=== PATIENT | male | born 1940 | race Caucasian/White ===

== ENCOUNTER → 2024-07-28 16:18 | Day surgery (SDC) | payer MEDICARE, OTHER, SELFPAY ==
[2024-07-28 12:06] VITALS: BP 157/86
[2024-07-28 12:30] LABS: % Basophils 0.6 % (0-2); % Eosinophils 4.5 % (0-6); % Immature Granulocytes 0.4 % (0-0.5); % Lymphocytes 9.5 % (20.5-51.1); % Monocytes 7.2 % (1.7-9.3); % Neutrophils 77.8 % (42.2-75.2); Absolute Basophils 0.1 10^3/uL (0-0.2); Absolute Eosinophils 0.5 10^3/uL (0-0.7); Absolute Immature Granulocytes 0.1 10^3/uL (0-0.05); Absolute Lymphocytes 1.1 10^3/uL (1.2-3.4); Absolute Monocytes 0.8 10^3/uL (0.1-0.6); Absolute Neutrophils 8.9 10^3/uL (1.4-6.5); Hematocrit 41.9 % (39.0-52.0); Hemoglobin 13.7 g/dL (13.0-18.0); Mean Corp Hgb Conc. 32.7 g/dL (33.0-37.0); Mean Corpuscular Hgb 27.8 pg (27.0-31.0); Mean Platelet Volume 9.8 fL (7.4-10.4); Nucleated Red Blood Cells % 0 % (-); Platelet Count 208 10^3/uL (130-400); Red Blood Cell Count 4.93 10^6/uL (4.70-6.10); Red Cell Dist. Width 14.6 % (11.5-14.5); White Blood Cell Count 11.5 10^3/uL (4.8-10.8)
[2024-07-28 12:43] LABS: INR 0.97; PT 13.4 Sec (11.4-14.6)
[2024-07-28 12:44] LABS: ALT (SGPT) 22 U/L (0-50); AST (SGOT) 25 U/L (17-59); Albumin 4.3 g/dl (3.5-5.0); Alkaline Phosphatase 197 U/L (38-126); Blood Urea Nitrogen 21 mg/dl (9-20); Calcium 9.4 mg/dl (8.4-10.2); Carbon Dioxide 31 mmol/L (22-30); Chloride 100 mmol/L (98-107); Glucose 97 mg/dl (70-99); Potassium 4.3 mmol/L (3.5-5.1); Sodium 139 mmol/L (135-145); Total Bilirubin 0.9 mg/dl (0.2-1.3); eGFR 53.84
--- NOTE | 2024-07-28 13:12 | ED.GENMED ---
ED Provider Triage
-
Patient seen by provider in Triage?: Seen in Triage
84 y/o M
h/o very many esophageal dilation surgeries at [facility]; 20+
for some reason he came here today
took his am pills with liquids fine
then ate oatmeal fine; then ate a muffin and felt it get stuck
ever since, having regurg of liquids and solids; speaking clearly, tolerating secretions
A medical screening examination has been initiated by a qualified medical provider. Based on the assessment performed at this time, it has been determined that an emergent medical condition may exist and the patient has been informed that further
medical evaluation and possible additional diagnostic testing may be needed.
HPI: This is a medical evaluation conducted in person to initiate diagnostic evaluation and provide initial therapeutics. Please see further documentation by the treating clinician.
GENERAL: Alert , in no apparent distress
ENT: No visible abnormalities
LUNGS: No acute respiratory distress
NEUROLOGICAL: Alert and oriented
SKIN: Skin intact. No visible changes.
MUSCULOSKELETAL: Moving extremities normally
PSYCH: Normal and appropriate interaction.
I did notify Dr. davis through [place] text regarding this patient's being in our waiting room, he will likely need to GI suite. We could not do glucagon out here at this time.
History of Present Illness
General
Chief Complaint: Swallowing Problem
Source: patient
Exam Limitations: none
Time Seen by Provider: 07/28/24 13:53
Nursing documentation reviewed up to this point in time: agreed with
History of Present Illness
History of Present Illness:
84 y/o M
History of cirrhosis, esophageal strictures, coronary artery disease and multiple other medical problems presents to [facility] for the first time for feeling like his muffin got stuck when he ate at for breakfast this morning.
h/o very many esophageal dilation surgeries at [facility]; 20+ times by GI there. His last 1 was 6 weeks ago
took his am pills with liquids fine
then ate oatmeal fine; then ate a muffin and felt it get stuck and ever since then he has not been able to pass liquids or solids. He did feel that the discomfort where the muffin was is better but he still cannot tolerate
Past History
Past History
ED Past Medical History: HTN, [place] and Other (Esophageal stricture)
ED Past Surgical History: Cardiac (Pacemaker, 2 stents), Orthopedic (Left knee replacement) and Other (Femoral bypass, AAA repair, multiple endoscopies for esophageal dilatation)
Patient has exhibited threatening behavior?: No
PSI?: No
Social History
Tobacco: Non-smoker
Alcohol: None
Drug: None
Personal:
Living: with family
Phy Exam
Physical Exam
Physical Exam:
GENERAL: Alert , in no apparent distress
EYE: pupils equal and reactive
NECK: Supple, tolerating secretions well
ENT: o/p clr, mmm.
CARDIAC: Regular rate and rhythm .
LUNGS: Clear breath sounds bilaterally, no acute respiratory distress, no wheezes/rales/rhonchi
ABDOMEN: Soft, without focal tenderness, no r/g, no cvat, normal bowel sounds
NEUROLOGICAL: Alert and oriented, no focal neuro deficits
SKIN: Warm and dry, skin intact.
MUSCULOSKELETAL: No edema, well perfused. neg alcon's sign
PSYCH: Normal and appropriate interaction.
Course
Orders/Labs/Results
Orders:
Orders
07/28/24 12:17
Complete Blood Count/With Diff Urgent
Comprehensive Metabolic Panel Urgent
PT/INR [Prothrombin Time] Urgent
07/28/24 14:30
Glucagon [GlucaGen] 1 mg IV NOW STA
07/28/24 16:02
Glycopyrrolate [Robinul] 0.2 mg .ROUTE .STK-MED ONE
Lidocaine 2% Mpf [Xylocaine Mpf 2%] 100 mg .ROUTE .STK-MED ONE
Rocuronium [place] [Rocuronium] 50 mg .ROUTE .STK-MED ONE
Sugammadex Sodium [Bridion] 200 mg .ROUTE .STK-MED ONE
07/28/24 16:03
Fentanyl Citrate/Pf [Sublimaze] 100 mcg .ROUTE .STK-MED ONE
Propofol [Diprivan] 40 ml .ROUTE .STK-MED
07/28/24 16:46
Activity As Directed
Activity Level: Bedrest
Comment: bedrest until awake & alert then resume previous activity level
Vital Signs As Directed
Frequency: Post-operative guidelines
Abnormal Lab Results
07/28/24
12:17
WBC 11.5 H 10^3/uL
(4.8-10.8)
MCHC 32.7 L g/dL
(33.0-37.0)
RDW 14.6 H %
(11.5-14.5)
Abs Immat Gran (auto) 0.1 H 10^3/uL
(0-0.05)
Absolute Neuts (auto) 8.9 H 10^3/uL
(1.4-6.5)
Absolute Lymphs (auto) 1.1 L 10^3/uL
(1.2-3.4)
Absolute Monos (auto) 0.8 H 10^3/uL
(0.1-0.6)
Neutrophils % 77.8 H %
(42.2-75.2)
Lymphocytes % 9.5 L %
(20.5-51.1)
Carbon Dioxide 31 H mmol/L
(22-30)
BUN 21 H mg/dl
(9-20)
Alkaline Phosphatase 197 H U/L
(38-126)
07/28/24 12:17
07/28/24 12:17
Vital Signs
Initial and Last Documented VS:
Initial Vital Signs
Temp Pulse Resp BP Pulse Ox
36.8 C 74 16 157/86 98
07/28/24 12:06 07/28/24 12:06 07/28/24 12:06 07/28/24 12:06 07/28/24 12:06
Last Documented Vital Signs
Temp Pulse Resp BP Pulse Ox
36.8 C 70 13 151/99 97
07/28/24 12:06 07/28/24 17:14 07/28/24 17:14 07/28/24 17:15 07/28/24 17:16
MDM/Problems Addressed
Differential Diagnosis Includes:
Dysphagia, food bolus, esophageal stricture
MDM/Problems Addressed:
84-year-old male with well-known documented history of esophageal strictures for years, requiring dilations, ate a muffin today and felt like it did not pass all the way but he was able to bring it up but ever since he feels a discomfort and it
regurgitates liquids or solids with swallowing. He knows he needs a dilation. He came here because he was closer to this hospital he is never been here before. On exam the patient is comfortable and tolerating secretions. He had a consultation
by GI who recommended IV glucagon which I did order. Patient ended up going to the GI suite
*Critical Care Note
Total Time (30-74mins, 75-104mins- exclusive of procedures): Not Applicable
ED Attending Note
-
Portions of this chart may have been created with voice recognition software.� Occasional wrong word or��sound alike� substitutions may have occurred due to the inherent limitations of voice recognition software.
Discharge Plan
Departure
Patient Disposition: GI LAB
Date of Disposition: 07/28/24
Time of Disposition: 17:31
Presentation/result/management discussed w/ accepting /: susan
Patient with high blood pressure during this ER visit?: No
Condition: Fair
Covid-19: Not Applicable
Discharge Problem:
Esophageal stricture
Referrals:
Daryl Costello DO [Family Provider] -
Interventions
Interventions:
*Risk Screen - Suicide Last Done: 07/28/24 12:06
*General Assessment Last Done: 07/28/24 15:12
*Neglect/Abuse Screening Last Done: 07/28/24 12:06
*ED COVID-19 Vaccine History Last Done: 07/28/24 15:12
*Nursing Disposition Last Done: 07/28/24 16:17
ED-EENT Assessment Last Done: 07/28/24 15:07
DA-Wldbes-Bktvituvgw Assessment Last Done: 07/28/24 15:07
ED- Pulmonary Assessment Last Done: 07/28/24 15:07
ED- Neurological Assessment Last Done: 07/28/24 15:07
ED Swallowing Screen Last Done: 07/28/24 15:07
Discharge Date and Time
Print Language: PAKISTANI
--- NOTE | 2024-07-28 14:42 | CON.GI ---
Addendum entered and electronically signed by Lola Modi MD 07/28/24 17:45:
I saw and examined the patient.
The CERTIFIED [employer]ACILITY OPERATOR's note was reviewed and I agree with the note.
Comment: This is a very pleasant 84-year-old male with past medical history as listed below who also has history of GERD, reflux esophagitis and esophageal stricture requiring multiple dilatations in the past with Dr. Muhammad for the past couple years
> 10 years and most recently had an endoscopy on 06/22/2024 which showed small hiatal hernia, esophagitis in the midesophagus and 2 esophageal ulcers present. patient has been on pantoprazole twice daily prior to admission. He also takes Plavix
denies any NSAID use. He was also started on Carafate recently no dilatation was performed because no obvious stricture was noted at that time. Today he took his medications and after he had juice, cream of wheat and a blueberry muffin he felt
that a piece of the muffin got stuck and he was unable to pass it and unable to swallow secretions and presented to the emergency room. He says that when these episodes happened in the past he would drink some warm tea and it usually would pass he
has never had a food bolus impaction in the past despite having a stricture
Assessment and plan Food bolus impaction most likely related to known esophageal stricture although on recent endoscopy from June with Dr. Muhammad there was no stricture reported. Will schedule him for an endoscopy with removal of the food bolus
and he will follow-up with Dr. Muhammad as outpatient. if he does have evidence of stricture on EGD today will require further dilatations after hold of Plavix for 5 to 7 days last dose of Plavix was today. recent endoscopy with significant esophagitis
continue pantoprazole twice daily and Carafate.
Original Note:
Consultation
-
Date/Time Consultation Requested: 07/28/241414
Date/Time Consultation Performed: 07/28/241424
Requesting Provider: AVE Candelaria
Performing Provider: Dr. Modi/[facility] Ha
Reason for Consultation: food bolus, dysphagia
Medical History
Chief Complaint / HPI
Chief Complaint: dysphagia, unable to tolerate secretions
History of Present Illness:
84-year-old male with past medical history of CAD, CHF, A-fib, cirrhosis per report, abdominal aortic aneurysm repair, hypertension, hyperlipidemia, pacemaker, orthostatic hypotension, prior alcohol use, angina, renal artery stenosis, vertigo, GERD,
esophagitis, dysphagia with history of esophageal stenosis in the past with recent endoscopy performed with Dr. Muhammad on 06/22/2024 which showed small hiatal hernia, grade 3/4 esophagitis in the mid esophagus with 2 esophageal ulcers present, patient
was actively refluxing during procedure. No stricture present. Endoscopy performed to duodenum. Patient was discharged on Carafate 3 times a day for 1 week. To continue on pantoprazole twice daily indefinitely. There was no stretching performed
at that time. Patient states that he took his medications this morning, had a glass of juice, ate cream of wheat and then had a blueberry muffin. He felt his blueberry muffin gets stuck. He states that anything after that promptly regurgitated
back up. He states that usually when this happens he has a cup of warm tea and this usually passes however this did not promptly regurgitated back up. He proceeded to the emergency room via ambulance. Since that time saliva has been building up
and he needed to go to the restroom and bring it up. He is on Plavix which she did take this morning. He is not on any other NSAIDs or anticoagulation. Patient was seen in the presence of his son Alex ([phone]) confirms his past medical
history. WBC 11.5, hemoglobin 13.7, crit 41.9, platelets 208, PT 13.4, INR 0.97, sodium 139, potassium 4.3, chloride 100, CO2 31, BUN 21, creatinine 1.39, glucose 97, total bilirubin 0.9, AST 25, ALT 22, alk phos 197, albumin 4.3
Past Medical History
Past Medical History: Other (CAD, CHF, paroxysmal A-fib, cirrhosis per report, hypertension, hyperlipidemia, orthostatic hypotension, prior alcohol overuse, angina, renal artery stenosis, vertigo, GERD, esophagitis, dysphagia with history of
esophageal stenosis,)
Past Surgical History: Other (Left knee replacement, cardiac stents, pacemaker, AAA repair, 'over 20 endoscopies')
Social History
Tobacco: Former Smoker
Alcohol: Occasional
Drug: None
Living: Assisted Living
Family History
Family History: Other (No family history of gastrointestinal malignancy or IBD)
Allergies / Home Medications
Allergy/AdvReac Type Severity Reaction Status Date / Time
No Known Allergies Allergy Verified 07/28/24 12:09
Review of Systems
-
All other systems: A 12 pt ROS was Negative except as stated above in HPI
Vital Signs
Temp Pulse Resp BP Pulse Ox
98.3 F 74 16 157/86 98
07/28/24 12:06 07/28/24 12:06 07/28/24 12:06 07/28/24 12:06 07/28/24 12:06
Physical Exam
Exam
General: No Apparent Distress
HEENT: Anicteric
Respiratory: Clear (Anterior)
Cardiac: Regular Rhythm
GI: Soft, Non Tender, Non Distended and Normal Bowel Sounds
Skin: Warm and Dry
Neuro: AO x 3
Psych: Calm
Results
WBC 11.5 10^3/uL (4.8-10.8) H 07/28/24 12:17
Hgb 13.7 g/dL (13.0-18.0) 07/28/24 12:17
Hct 41.9 % (39.0-52.0) 07/28/24 12:17
MCV 85.0 fL (80.0-94.0) 07/28/24 12:17
Plt Count 208 10^3/uL (130-400) 07/28/24 12:17
Absolute Neuts (auto) 8.9 10^3/uL (1.4-6.5) H 07/28/24 12:17
PT 13.4 Sec (11.4-14.6) 07/28/24 12:17
INR 0.97 07/28/24 12:17
Sodium 139 mmol/L (135-145) 07/28/24 12:17
Potassium 4.3 mmol/L (3.5-5.1) 07/28/24 12:17
Chloride 100 mmol/L (98-107) 07/28/24 12:17
Carbon Dioxide 31 mmol/L (22-30) H 07/28/24 12:17
BUN 21 mg/dl (9-20) H 07/28/24 12:17
Creatinine 1.3 mg/dL (0.7-1.3) 07/28/24 12:17
Calcium 9.4 mg/dl (8.4-10.2) 07/28/24 12:17
Total Bilirubin 0.9 mg/dl (0.2-1.3) 07/28/24 12:17
AST 25 U/L (17-59) 07/28/24 12:17
ALT 22 U/L (0-50) 07/28/24 12:17
Alkaline Phosphatase 197 U/L (38-126) H 07/28/24 12:17
Diagnostic Image Results:
None
Prior GI Procedures:
EGD: 06/22/2024 Dr. Huggins: Grade 3/4 esophagitis. No stricture. Wide open esophagus except for esophagitis. Small hiatal hernia. 2 esophageal ulcers present. Refluxing during procedure. Pathology negative for H. pylori. Negative Perez's
Colonoscopy:
Assessment / Plan
-
84-year-old male with past medical history of CAD, CHF, A-fib, cirrhosis per report, abdominal aortic aneurysm repair, hypertension, hyperlipidemia, pacemaker, orthostatic hypotension, prior alcohol use, angina, renal artery stenosis, vertigo, GERD,
esophagitis, dysphagia with history of esophageal stenosis in the past with recent endoscopy performed with Dr. Muhammad on 06/22/2024 which showed small hiatal hernia, grade 3/4 esophagitis in the mid esophagus with 2 esophageal ulcers present, patient
was actively refluxing during procedure. No stricture present. Endoscopy performed to duodenum. Patient was discharged on Carafate 3 times a day for 1 week. To continue on pantoprazole twice daily indefinitely. There was no stretching performed
at that time. Patient states that he took his medications this morning, had a glass of juice, ate cream of wheat and then had a blueberry muffin. The patient has not been able to pass this. Regurgitating liquids and secretions since that time.
Current medications: Tylenol, atorvastatin, betamethasone, bumetanide, Plavix (taken this a.m.), famotidine, ferrous sulfate, folic acid, Gemtesa, losartan, metoprolol, nitro (as needed), pantoprazole 40 mg twice daily, potassium
Labs: WBC 11.5, hemoglobin 13.7, Hct 41.9, platelets 208, PT 13.4, INR 0.97, sodium 139, potassium 4.3, chloride 100, CO2 31, BUN 21, creatinine 1.39, glucose 97, total bilirubin 0.9, AST 25, ALT 22, alk phos 197, albumin 4.3
No imaging
Allergies Keflex/cephalexin
Son Alex ([phone])
Impression:
Dysphagia/food impaction
History of esophagitis
History of prior esophageal stricture, not recently seen on prior endoscopy 06/22/[address] Huggins EGD
On Plavix, last dose this morning
Possible history of cirrhosis, although no varices seen on EGD per report. Preserved platelets, INR
Plan:
-ER to secure IV line
-ER to try to give glucagon to help pass food bolus
-Plan on EGD today
-Discussed with patient and son patient will require intubation for procedure
-Patient is to be discharged later today son will be able to provide transportation
-Further recommendations to be forthcoming after EGD
-
-
Thank you for consultation and allowing me to participate in the patient's care. Please call the [facility] GI physician during the after hours with any questions or concerns.
[2024-07-28] MEDS: GlucaGen 1 MG IV (15:09)
[2024-07-28 16:49] VITALS: BP 117/67
[2024-07-28 17:00] VITALS: BP 157/78
[2024-07-28 17:15] VITALS: BP 151/99
== END ==
LOC: EMR 11:36 → SDS 16:18
PROVIDERS: Emergency Medicine; ATTENDING PHYSICIAN Internal Medicine Gastroenterology; EMERGENCY PHYSICIAN Student in an Organized Health Care Education/Training Program; FAMILY PHYSICIAN Family Medicine
DX: T18.128A Food in esophagus causing other injury, initial encounter (principal); W44.F3XA Food entering into or through a natural orifice, initial encounter; K20.90 Esophagitis, unspecified without bleeding; K22.2 Esophageal obstruction; R13.19 Other dysphagia
CPT/HCPCS: 43235; 80053; 85025; 85610; 96374; 99285; J1610

== ENCOUNTER 2024-08-07 12:59 | Inpatient (IN) | payer MEDICARE, OTHER, SELFPAY ==
[2024-08-07 10:38] VITALS: BP 171/88
[2024-08-07] MEDS: NSS 500 IV (11:42)
[2024-08-07 11:43] VITALS: BMI 34.9
[2024-08-07 11:50] LABS: % Basophils 0.4 % (0-2); % Eosinophils 6.2 % (0-6); % Immature Granulocytes 0.4 % (0-0.5); % Lymphocytes 10.7 % (20.5-51.1); % Monocytes 7.9 % (1.7-9.3); % Neutrophils 74.4 % (42.2-75.2); Absolute Eosinophils 0.6 10^3/uL (0-0.7); Absolute Monocytes 0.7 10^3/uL (0.1-0.6); Absolute Neutrophils 6.9 10^3/uL (1.4-6.5); Hematocrit 41.7 % (39.0-52.0); Hemoglobin 13.6 g/dL (13.0-18.0); Mean Corp Hgb Conc. 32.6 g/dL (33.0-37.0); Mean Corpuscular Hgb 27.6 pg (27.0-31.0); Mean Corpuscular Volume 84.8 fL (80.0-94.0); Mean Platelet Volume 9.6 fL (7.4-10.4); Nucleated Red Blood Cells % 0 % (-); Platelet Count 224 10^3/uL (130-400); Red Blood Cell Count 4.92 10^6/uL (4.70-6.10); White Blood Cell Count 9.3 10^3/uL (4.8-10.8)
[2024-08-07 12:04] LABS: ALT (SGPT) 16 U/L (0-50); AST (SGOT) 23 U/L (17-59); Albumin 3.8 g/dl (3.5-5.0); Alkaline Phosphatase 172 U/L (38-126); Blood Urea Nitrogen 18 mg/dl (9-20); Calcium 9.6 mg/dl (8.4-10.2); Carbon Dioxide 34 mmol/L (22-30); Chloride 99 mmol/L (98-107); Estimated Creatinine Clearance 61 ml/min; Glucose 111 mg/dl (70-99); Potassium 4.5 mmol/L (3.5-5.1); Sodium 137 mmol/L (135-145); Total Bilirubin 0.7 mg/dl (0.2-1.3); Total Protein 6.7 g/dl (6.3-8.2); eGFR > 60.00
[2024-08-07] MEDS: PROTONIX IV 40 MG IV ×2 (12:14→21:42)
--- NOTE | 2024-08-07 12:16 | ED.GENMED ---
History of Present Illness
General
Chief Complaint: Esophageal Problem
Time Seen by Provider: 08/07/24 11:15
History of Present Illness
History of Present Illness:
84-year-old male with history of recurrent esophageal strictures and esophagitis presents to the emergency department for evaluation of inability to pass any p.o. fluids or solids for the past day. Was most recently scoped in late July and was
planning to obtain an outpatient EGD for repeat dilatation before the symptoms began. He attempted to take his pills this morning with no success. He has resumed his Plavix up until this morning
Past History
Past History
ED Past Medical History: HTN, [place] and Other (Esophageal stricture)
ED Past Surgical History: Cardiac (Pacemaker, 2 stents), Orthopedic (Left knee replacement) and Other (Femoral bypass, AAA repair, multiple endoscopies for esophageal dilatation)
Patient has exhibited threatening behavior?: No
PSI?: No
Social History
Tobacco: Non-smoker
Alcohol: None
Drug: None
Personal:
Living: with family
Review of Systems
Review of Systems
Allergies reviewed?: Yes
All Other Systems: ROS reviewed and negative except as documented in HPI and ROS
Phy Exam
Physical Exam
Physical Exam:
GEN: Well appearing, NAD, WDWN
HEENT: Oral mucosa moist, no scleral icterus
Cardiac: Regular rate
Lung: No respiratory distress, no tachypnea
MSK: No gross deformity or injuries
Skin: Good color, no pallor or jaundice, no rashes
Neuro: AO x3, moves all extremities freely
Psych: Calm, cooperative
Course
Orders/Labs/Results
Orders:
Orders
08/07/24 11:37
0.9% Sodium Chloride 500 ml [Nss] 500 ml IV BOLUS
08/07/24 11:43
Complete Blood Count/With Diff Urgent
Comprehensive Metabolic Panel Urgent
08/07/24 12:03
Pantoprazole [Protonix IV] 40 mg IV NOW STA
08/07/24 12:40
Admit/Transfer Patient As Directed
Co-Sign Provider:
Level of Care: Inpatient admission
Assign to:: Medical/Surgical
Physician / Group: damon
Diagnosis: esophageal stricture
Reason for Hospitalization: esophageal stricture
Expected length of stay greater than two midnights?: Yes
ELOS- Estimated Length of Stay in days: 2
I certify the patient meets the requirements for IP care: Yes
Code Status As Directed
Resuscitation Status: Do not resuscitate
Reached after discussion with pt or family/Healthcare POA: Yes
PRN Pain Medication Management As Directed
May give lesser potent ordered pain med per pt: Yes
preference::
Protocol:: Medication orders for pain may be administered in a
manner that supports deferring to patient preference
when the pt is:
- Requesting an ordered lesser potent pain medication.
Least to most potent pain medications are defined
as: acetaminophen < NSAID < tramadol < opioids
(morphine, oxycodone, hydromorphone).
- Requesting a lesser dose of the same medication IF
ORDERED.
- Requesting a less intrusive route of administration
if both routes are prescribed by the provider (PO <
IV).
08/07/24 12:41
DNR Bracelet Application ONCE
08/07/24 14:12
Ondansetron Injectable [Zofran] 4 mg IV Q6HPRN PRN
08/07/24 14:12
GASTROINTESTINAL CONSULT Routine
Consulting Provider: Rosaura Lawson
Was physician already notified: Yes
Activity As Directed
Activity Level: As Tolerated
Pneumatic Compression Sleeves As Directed
Type: Knee high
Vital Signs As Directed
Frequency: Per unit guidelines
DX Deep Vein Thrombosis Video Routine
08/07/24 Dinner
NPO
Allow oral meds: Yes
Allow clear liquids: No
08/07/24 20:00
Pantoprazole [Protonix IV] 40 mg IV BID
08/08/24 06:00
Complete Blood Count/With Diff IN AM
Comprehensive Metabolic Panel IN AM
Abnormal Lab Results
08/07/24
11:43
MCHC 32.6 L g/dL
(33.0-37.0)
Absolute Neuts (auto) 6.9 H 10^3/uL
(1.4-6.5)
Absolute Lymphs (auto) 1.0 L 10^3/uL
(1.2-3.4)
Absolute Monos (auto) 0.7 H 10^3/uL
(0.1-0.6)
Lymphocytes % 10.7 L %
(20.5-51.1)
Eosinophils % 6.2 H %
(0-6)
Carbon Dioxide 34 H mmol/L
(22-30)
Glucose 111 H mg/dl
(70-99)
Alkaline Phosphatase 172 H U/L
(38-126)
08/07/24 11:43
08/07/24 11:43
Vital Signs
Initial and Last Documented VS:
Initial Vital Signs
Temp Pulse Resp BP Pulse Ox
98.2 F 70 18 171/88 96
08/07/24 10:38 08/07/24 10:38 08/07/24 10:38 08/07/24 10:38 08/07/24 10:38
Last Documented Vital Signs
Temp Pulse Resp BP Pulse Ox
97.8 F 72 18 179/85 96
08/07/24 14:20 08/07/24 14:20 08/07/24 14:20 08/07/24 14:20 08/07/24 14:20
MDM/Problems Addressed
MDM/Problems Addressed:
Case discussed with GI, patient will require admission for IV PPIs and plan for eventual endoscopy but emergent endoscopy is not indicated particular given risk of perforation and current use of antiplatelet agent
*Critical Care Note
Total Time (30-74mins, 75-104mins- exclusive of procedures): Not Applicable
ED Attending Note
-
Portions of this chart may have been created with voice recognition software.� Occasional wrong word or��sound alike� substitutions may have occurred due to the inherent limitations of voice recognition software.
Discharge Plan
Departure
Patient Disposition: Admit
Date of Disposition: 08/07/24
Time of Disposition: 12:18
Admit to: Med/Surg
Presentation/result/management discussed w/ accepting MD/DO: Hospitalist
Discharge Problem:
Esophagitis
Interventions
Interventions:
*Risk Screen - Suicide Last Done: 08/07/24 10:38
*General Assessment Last Done: 08/07/24 10:38
*Nursing Disposition Last Done: 08/07/24 13:49
NP-Umcldk-Wzwdppropl Assessment Last Done: 08/07/24 11:54
ED-EENT Assessment Last Done: 08/07/24 11:54
Discharge Date and Time
Discharge Date/Time: 08/07/24 13:49
--- NOTE | 2024-08-07 12:49 | HPS.HSE ---
Family Physician
-
Family Physician: Daryl Costello
Chief Complaint
-
inability to tolerate PO
History of Present Illness
84-year-old male past medical history of GERD, reflux esophagitis, esophageal ulcers, hiatal hernia, esophageal stricture status post multiple dilatations in the past, hypertension, CAD, CHF, pacemaker, thoracic aortic aneurysm, abdominal aortic
aneurysm status post repair, PAD status post femoral bypass on Plavix, presenting for inability to pass any p.o. fluids or solids for the past day. Unable to take pills today. He denies any chest pain or abdominal pain. Denies vomiting. Denies
diarrhea or constipation.
Patient was recently in the hospital on 07/28 of this year for food bolus impaction likely related to known esophageal stricture. He underwent EGD which showed esophagitis without bleeding, esophageal diverticulum. Repeat endoscopy is recommended 1
month to check for healing and dilatation.
Patient previously had endoscopy on 06/22 which showed small hiatal hernia, esophagitis in the midesophagus and 2 esophageal ulcers.
He is a former smoker. He drinks alcohol occasionally.
Medical History
Past Medical History
Past Medical History: Reports Other (GERD, reflux esophagitis, esophageal ulcers, hiatal hernia, esophageal stricture status post multiple dilatations in the past, hypertension, CAD, CHF, pacemaker, thoracic aortic aneurysm, abdominal aortic
aneurysm status post repair, PAD status post femoral bypass on Plavix,)
Past Surgical History: Reports Other ((Left knee replacement, cardiac stents, pacemaker, AAA repair, 'over 20 endoscopies')
Social History
Tobacco: Former Smoker
Alcohol: Occasional
Drug: None
Family History
Family History: Not pertinent
Allergies / Home Medications
Allergies reflects when Allergies were last updated in [facility].
Home Medications with original date entered in [facility]
Allergy/Medication List:
Allergies
Allergy/AdvReac Type Severity Reaction Status Date / Time
No Known Allergies Allergy Verified 08/07/24 10:39
Review of Systems
-
History Source: Patient
A 12 point ROS was completed and negative except as noted: Yes
Constitutional: Reports No Symptoms
EENT: Reports No Symptoms
Respiratory: Reports No Symptoms
Cardiac: Reports No Symptoms
Abdomen/GI: Reports No Symptoms
: Reports No Symptoms
Musculoskeletal: Reports No Symptoms
Skin: Reports No Symptoms
Neurological: Reports No Symptoms
Endocrine: Reports No Symptoms
Hematologic/Lymphatic: Reports No Symptoms
Psych: Reports No Symptoms
Physical Exam
Vital Signs
Vital Signs
Temp Pulse Resp BP Pulse Ox
98.2 F 70 18 171/88 96
08/07/24 10:38 08/07/24 10:38 08/07/24 10:38 08/07/24 10:38 08/07/24 10:38
Physical Exam
General: Well Developed, Well Nourished and No Apparent Distress
HEENT: NormoCephalic, Moist mucous membranes and Atraumatic
Respiratory: Clear
Cardiac: S1/S2 and Regular Rhythm; No Murmur or Rub
GI: Soft, Non Tender, Non Distended and Normal Bowel Sounds; No Organomegaly
Rectal: Deferred by Provider
Musculoskeletal: No Clubbing, No Cyanosis and No Edema
Skin: No Rash
Neuro: Nonfocal/grossly intact
Laboratory Results
-
08/07/24 11:43
08/07/24 11:43
Laboratory Results
Total Bilirubin 0.7 mg/dl (0.2-1.3) 08/07/24 11:43
AST 23 U/L (17-59) 08/07/24 11:43
ALT 16 U/L (0-50) 08/07/24 11:43
Alkaline Phosphatase 172 U/L (38-126) H 08/07/24 11:43
Data Reviewed
-
Lab Data: Labs Reviewed by me
Old Records: Reviewed
Impression/Plan
-
IMPRESSION:
PLAN:
# Recurrent esophageal stricture
# History of esophageal stricture status post multiple dilatations in the past
-N.p.o. including oral meds
-IV fluids
-Protonix 40 IV twice daily
-GI consulted and recommended no urgent EGD due to risk of perforation and use of Plavix
-Hold Plavix
-Unable to verify medications at this time but will list likely meds below given prior documentation available
GERD/reflux esophagitis/esophageal ulcers/hiatal hernia
Cirrhosis as per prior report
-Patient denies any history
Essential hypertension
-Hold losartan, metoprolol
-As needed hydralazine if needed for blood pressure greater than 180
CAD status post stents
-Hold Plavix
History of heart failure
-Hold Bumex, potassium
History of pacemaker
PAD status post femoral bypass
-Hold Plavix
-Chronic bilateral lower extremity swelling/erythema after bypass
Renal artery stenosis
Abdominal aortic aneurysm status post repair
History of thoracic aortic aneurysm status post stent as per patient
History of anemia
-Hold iron supplement, folate
Hyperlipidemia
-Hold statin
DNR/DNI
DVT prophylaxis�SCDs
N.p.o.
[2024-08-07 14:20] VITALS: BP 179/85
[2024-08-07 14:23] VITALS: BMI 34.4
[2024-08-07] MEDS: APRESOLINE 10 MG IV (14:39)
[2024-08-07 15:09] VITALS: BP 153/68
[2024-08-07] MEDS: NSS (PRESERVATIVE FREE) 10 ML IV (21:48)
[2024-08-07 23:46] VITALS: BP 179/85
[2024-08-08] VITALS (10 sets, daily range): BP systolic 20–190; BP diastolic 62–94; PULSE 72; BMI 33.2
[2024-08-08] MEDS: APRESOLINE IV (01:09)
--- NOTE | 2024-08-08 07:33 | PTCARENOTE ---
Pt aaox3 able to make his needs known.Pt has chronic arthritic pain & has his heating pad from home. Pt was explained about hospital policy & we could provide a heating pad, pt refusing for it,prefers to use his own.PARKING SUPERVISOR natural resource economist made aware of it.Pt
was explained to keep the heating pad away when it is not in use. Plan of care continued.No other complaints note.
[2024-08-08 07:35] LABS: % Basophils 0.6 % (0-2); % Eosinophils 5.1 % (0-6); % Immature Granulocytes 0.5 % (0-0.5); % Lymphocytes 15.5 % (20.5-51.1); % Monocytes 7.9 % (1.7-9.3); % Neutrophils 70.4 % (42.2-75.2); Absolute Basophils 0.1 10^3/uL (0-0.2); Absolute Eosinophils 0.4 10^3/uL (0-0.7); Absolute Lymphocytes 1.3 10^3/uL (1.2-3.4); Absolute Monocytes 0.7 10^3/uL (0.1-0.6); Absolute Neutrophils 5.9 10^3/uL (1.4-6.5); Hematocrit 41.5 % (39.0-52.0); Hemoglobin 13.8 g/dL (13.0-18.0); Mean Corp Hgb Conc. 33.3 g/dL (33.0-37.0); Mean Corpuscular Hgb 27.8 pg (27.0-31.0); Mean Corpuscular Volume 83.5 fL (80.0-94.0); Mean Platelet Volume 9.8 fL (7.4-10.4); Nucleated Red Blood Cells % 0 % (-); Platelet Count 217 10^3/uL (130-400); Red Blood Cell Count 4.97 10^6/uL (4.70-6.10); Red Cell Dist. Width 14.4 % (11.5-14.5); White Blood Cell Count 8.3 10^3/uL (4.8-10.8)
[2024-08-08 08:05] LABS: ALT (SGPT) 14 U/L (0-50); AST (SGOT) 20 U/L (17-59); Albumin 3.5 g/dl (3.5-5.0); Alkaline Phosphatase 161 U/L (38-126); Blood Urea Nitrogen 17 mg/dl (9-20); Calcium 9.5 mg/dl (8.4-10.2); Carbon Dioxide 26 mmol/L (22-30); Chloride 106 mmol/L (98-107); Estimated Creatinine Clearance 60 ml/min; Glucose 89 mg/dl (70-99); Potassium 4.3 mmol/L (3.5-5.1); Sodium 140 mmol/L (135-145); Total Bilirubin 0.9 mg/dl (0.2-1.3); Total Protein 6.3 g/dl (6.3-8.2); eGFR > 60.00
--- NOTE | 2024-08-08 08:52 | CON.GI ---
Addendum entered and electronically signed by Rosaura Lawson MD 08/08/24 10:12:
I saw and examined the patient.
The BRANDING MACHINE OPERATOR or PA's note was reviewed and I agree with the note.
Comment:
Pt is a 84 y/o man with a hx of esophageal stricture and prior food impactions and dilations, followed closely by outside GI. he did have a food impaction 07/28 and was told to have dilation. Couldn't at that time bec of plavix for CAD. he never
stopped plavix and comes with a feeling of pills being stuck. Did vomit out some in ER. Now feels better. Not sure if any residual.
abd: soft, nontender
impression
dysphagia
hx of stricture of the esophagus
plan:
hold plavix but still can't dilate as not off for 5 days
EGD to ensure no residual pills
will need dilation after stopping plavix
PPI bid
Original Note:
Consultation
-
Date/Time Consultation Requested: 08/07/24
Date/Time Consultation Performed: 08/08/24
Requesting Provider:
Performing Provider: ,
Reason for Consultation: Food Impaction
Medical History
Chief Complaint / HPI
Chief Complaint: Unable to tolerate p.o. intake
History of Present Illness:
This is a 84 year old male patient with significant PMH for hx of esophageal stricture status post multiple dilatations in the past, CAD with stents on Plavix, PAD, CHF, GERD, hiatal hernia. hx of cirrohosis per prior reports who presented to for
concerns of inability to tolerate p.o. intake since yesterday. He states that since yesterday morning at breakfast, he was unable to take his usual amount of pills. He normally takes 10 pills in the morning with food everyday but this time he states
that his pills 'came back up' and had a mild non bloody vomiting episode. Any further attempts at oral intake were not tolerated. He had ate dinner without any issues the night before. He denies any fevers, nausea or changes to his bowel movements.
He also denies any saliva build up at present but does admit to some yesterday. He did not experience any choking/gasping episodes.
He currently underwent a recent EGD on 07/28/24 for similar complaints and revealed esophagitis with no bleeding, diverticulum in the distal esophagus and benign-appearing esophageal stenosis. He wa scheduled to have a repeat EGD for dilatation later
this moth.
He was on Plavix until yesterday morning when this episode occurred.
The patient follows with outpatient.
Past Medical History
Past Medical History: CAD, CHF, GERD and Other (reflux esophagitis, esophageal ulcers, hiatal hernia, esophageal stricture status post multiple dilatations in the past/multiple endoscopies, hypertension, pacemaker, thoracic aortic aneurysm,
abdominal aortic aneurysm status post repair, PAD status post femoral bypass on Plavix)
Past Surgical History: Other (Left knee replacement, cardiac stents, pacemaker, AAA repair)
Social History
Tobacco: Former Smoker
Alcohol: Occasional
Drug: None
Personal:
Living: Assisted Living ([facility])
Family History
Family History: Reviewed & Not Pertinent
Allergies / Home Medications
Allergy/AdvReac Type Severity Reaction Status Date / Time
No Known Allergies Allergy Verified 08/07/24 10:39
Review of Systems
-
All other systems: A 12 pt ROS was Negative except as stated above in HPI
Vital Signs
Temp Pulse Resp BP Pulse Ox
97.8 F 72 18 173/94 97
08/08/24 08:14 08/08/24 08:14 08/08/24 08:14 08/08/24 08:14 08/08/24 08:14
Physical Exam
Exam
General: No Apparent Distress and Comfortable
HEENT: Normocephalic and Moist Mucous Membranes
Respiratory: Rhonchi (scattered, clearing after cough/due to mucus) and Non Labored Respirations
Cardiac: S1/S2 and Regular Rhythm
GI: Soft, Non Tender and Non Distended
Musculoskeletal: No Cyanosis and No Edema
Skin: Warm and Dry
Neuro: Nonfocal/Grossly Intact
Results
WBC 8.3 10^3/uL (4.8-10.8) 08/08/24 06:53
Hgb 13.8 g/dL (13.0-18.0) 08/08/24 06:53
Hct 41.5 % (39.0-52.0) 08/08/24 06:53
MCV 83.5 fL (80.0-94.0) 08/08/24 06:53
Plt Count 217 10^3/uL (130-400) 08/08/24 06:53
Absolute Neuts (auto) 5.9 10^3/uL (1.4-6.5) 08/08/24 06:53
Sodium 140 mmol/L (135-145) 08/08/24 06:53
Potassium 4.3 mmol/L (3.5-5.1) 08/08/24 06:53
Chloride 106 mmol/L (98-107) 08/08/24 06:53
Carbon Dioxide 26 mmol/L (22-30) 08/08/24 06:53
BUN 17 mg/dl (9-20) 08/08/24 06:53
Creatinine 1.1 mg/dL (0.7-1.3) 08/08/24 06:53
Calcium 9.5 mg/dl (8.4-10.2) 08/08/24 06:53
Total Bilirubin 0.9 mg/dl (0.2-1.3) 08/08/24 06:53
AST 20 U/L (17-59) 08/08/24 06:53
ALT 14 U/L (0-50) 08/08/24 06:53
Alkaline Phosphatase 161 U/L (38-126) H 08/08/24 06:53
Diagnostic Image Results:
none
Prior GI Procedures:
07/28/24: ( [facility])
LA Grade C esophagitis with no bleeding.
- Diverticulum in the distal esophagus.
- Benign-appearing esophageal stenosis.
- Normal stomach.
- Normal examined duodenum.
- No specimens collected.
EGD: EGD: 06/22/2024 Dr. Huggins: Grade 3/4 esophagitis. No stricture. Wide open esophagus except for esophagitis. Small hiatal hernia. 2 esophageal ulcers present. Refluxing during procedure. Pathology negative for H. pylori. Negative Perez's
Colonoscopy: not available
Assessment / Plan
-
This is a 84 year old male patient with significant PMH for hx of esophageal stricture status post multiple dilatations in the past, CAD with stents on Plavix, PAD, CHF, GERD, hiatal hernia. hx of cirrohosis per prior reports who presented to for
concerns of inability to tolerate p.o. intake since yesterday. He states that since yesterday morning at breakfast, he was unable to take his usual amount of pills. He normally takes 10 pills in the morning with food everyday but this time he states
that his pills 'came back up' and had a mild non bloody vomiting episode. Any further attempts at oral intake were not tolerated. He had ate dinner without any issues the night before. He denies any fevers, nausea or changes to his bowel movements.
He also denies any saliva build up at present but does admit to some yesterday. He did not experience any choking/gasping episodes.
He currently underwent a recent EGD on 07/28/24 for similar complaints and revealed esophagitis with no bleeding, diverticulum in the distal esophagus and benign-appearing esophageal stenosis. He wa scheduled to have a repeat EGD for dilatation later
this moth.
He was on Plavix until yesterday morning when this episode occurred.
The patient follows with outpatient.
Impression:
Food Impaction
Esophagitis
Hx Hiatal Hernia
GERD
Hx of cirrhosis according to prior reports
History of prior esophageal stricture on prior reports
Hx of CAD w stents/PAD - on Plavix
Plan:
-Pt to be kept on NPO
-EGD scheduled for today
- further recommendations to follow after procedure
Data Reviewed
-
Old Records: Reviewed
-
-
Thank you for consultation and allowing me to participate in the patient's care. Please call the front end technician GI physician during the after hours with any questions or concerns.
[2024-08-08] MEDS: APRESOLINE 10 MG IV (08:59)
[2024-08-08] MEDS: NSS (PRESERVATIVE FREE) 10 ML IV ×2 (08:59→21:54)
[2024-08-08] MEDS: PROTONIX IV 40 MG IV ×2 (08:59→21:54)
[2024-08-08] MEDS: D5LR 1000 IV (09:05)
--- NOTE | 2024-08-08 10:36 | W.PN.UPDATE ---
Update Note
Progress Note Update
egd w/o food or pill impaction; did have stricture but could pass scope
needs outpatient dilation after he is off plavix and pt prefers to go back to his primary gi
told pt to avoid large pills, meats, breads until then
ok for d/c from gi standpoint
will sign off
--- NOTE | 2024-08-08 12:12 | CM ---
Patient seen bedside, initial assessment completed. Admitted for inability to tolerate PO.
Patient reports that he lives alone at [facility] assisted living. Patient has a 2nd flr apartment- elevator access. Patient states his resides at their home, does not live w/ him at the [facility]. Patient is independent w/ RW for ambulation,
patient states he is assisted w/ bathing his back and lower legs.
Patient stated he received inpatient rehab 2 years ago but does not recall the facility, no services hx.
Address, points of contact and insurance verified
PCP: Daryl Costello
Pharmacy: [facility]
Plan: Return to [facility] when stable.
CM will cont to follow for d/c planning
--- NOTE | 2024-08-08 14:21 | W.PN.HOSP.TC ---
Today's Communication/Plan
-
Awaiting home med rec
PT eval
Stop fluids
Monitor for diet tolerance
Assessment / Plan
Assessment / Plan
# Recurrent esophageal stricture
# History of esophageal stricture status post multiple dilatations in the past
-IV fluids can be stopped
-Protonix 40
-s/p EGD w/o food or pill impaction; did have stricture but could pass scope. Per GI diet can be resumed. Needs outpatient dilatation. Patient was recommended to avoid large pills, meats, breads till dilatation
-Monitor for diet tolerance
GERD/reflux esophagitis/esophageal ulcers/hiatal hernia
Cirrhosis as per prior report
-Patient denies any history
Essential hypertension
-Awaiting home med rec
-As needed hydralazine if needed for blood pressure greater than 180
CAD status post stents
-Awaiting home med rec
History of heart failure
-Awaiting home med rec
History of pacemaker
PAD status post femoral bypass
-Awaiting home med rec
-Chronic bilateral lower extremity swelling/erythema after bypass
Renal artery stenosis
Abdominal aortic aneurysm status post repair
History of thoracic aortic aneurysm status post stent as per patient
History of anemia
-Hold iron supplement, folate
Hyperlipidemia
-Hold statin
DNR/DNI
DVT prophylaxis�SCDs
Await home medication reconciliation
Anticipated Discharge: Within 24 hours
Subjective/Interval History
-
Date of Service: August 08, 2024
seen and examined earlier today
Objective Data
-
Labs:
Laboratory Results
08/08/24
06:53
WBC 8.3
Hgb 13.8
Hct 41.5
Plt Count 217
Sodium 140
Potassium 4.3
Chloride 106
Carbon Dioxide 26
BUN 17
Creatinine 1.1
Glucose 89
Calcium 9.5
Total Bilirubin 0.9
AST 20
ALT 14
Alkaline Phosphatase 161 H
Vital Signs:
Vital Signs
Temp Pulse Resp BP Pulse Ox
97.4 F 71 18 164/79 97
08/08/24 11:45 08/08/24 11:45 08/08/24 11:45 08/08/24 11:45 08/08/24 11:45
I&O
08/07/24 08/08/24 08/09/24
06:59 06:59 06:59
Intake Total 0 / 0
Balance 0 / 0
Physical Exam
-
General: Well Developed and No Apparent Distress
HEENT: Normocephalic, Atraumatic and Moist Mucous Membranes
Respiratory: Clear to Auscultation
Cardiac: Regular Rhythm and S1/S2; Negative Murmur, Rub or Gallop
GI: Soft, Nontender, Nondistended and Normal Bowel Sounds; Negative Organomegaly
Rectal: Deferred by Provider
Musculoskeletal: No Clubbing, No Cyanosis and No Edema
Skin: Negative Rash
Neuro: Awake and Nonfocal/Grossly Intact
Psych: Calm
Data Reviewed
-
Total Time Spent with Patient (in minutes): 55
[2024-08-08] MEDS: TOPROL XL 50 MG PO (17:09)
[2024-08-09] MEDS: APRESOLINE 10 MG IV (03:07)
[2024-08-09 06:00] VITALS: BMI 33.0
[2024-08-09 07:03] LABS: % Basophils 0.4 % (0-2); % Eosinophils 6.1 % (0-6); % Immature Granulocytes 0.5 % (0-0.5); % Lymphocytes 10.3 % (20.5-51.1); % Monocytes 8.2 % (1.7-9.3); % Neutrophils 74.5 % (42.2-75.2); Absolute Eosinophils 0.6 10^3/uL (0-0.7); Absolute Immature Granulocytes 0.1 10^3/uL (0-0.05); Absolute Monocytes 0.8 10^3/uL (0.1-0.6); Absolute Neutrophils 6.8 10^3/uL (1.4-6.5); Hematocrit 40.8 % (39.0-52.0); Hemoglobin 13.6 g/dL (13.0-18.0); Mean Corp Hgb Conc. 33.3 g/dL (33.0-37.0); Mean Corpuscular Hgb 27.8 pg (27.0-31.0); Mean Corpuscular Volume 83.4 fL (80.0-94.0); Mean Platelet Volume 9.9 fL (7.4-10.4); Nucleated Red Blood Cells % 0 % (-); Platelet Count 205 10^3/uL (130-400); Red Blood Cell Count 4.89 10^6/uL (4.70-6.10); Red Cell Dist. Width 14.3 % (11.5-14.5); White Blood Cell Count 9.2 10^3/uL (4.8-10.8)
[2024-08-09 07:30] VITALS: BP 169/74
[2024-08-09 07:43] LABS: Blood Urea Nitrogen 15 mg/dl (9-20); Calcium 9.4 mg/dl (8.4-10.2); Carbon Dioxide 21 mmol/L (22-30); Chloride 107 mmol/L (98-107); Estimated Creatinine Clearance 65 ml/min; Glucose 115 mg/dl (70-99); Potassium 3.7 mmol/L (3.5-5.1); Sodium 138 mmol/L (135-145); eGFR > 60.00
[2024-08-09] MEDS: PLAVIX 75 MG PO (08:46)
[2024-08-09] MEDS: LIPITOR 20 MG PO (08:46)
[2024-08-09] MEDS: TOPROL XL 50 MG PO (08:46)
[2024-08-09] MEDS: PROTONIX IV 40 MG IV (08:47)
[2024-08-09] MEDS: COZAAR 50 MG PO (08:47)
[2024-08-09] MEDS: NSS (PRESERVATIVE FREE) 10 ML IV (08:47)
[2024-08-09] MEDS: BUMEX 2 MG PO (09:03)
[2024-08-09] MEDS: KCL 20 MEQ PO (09:03)
--- NOTE | 2024-08-09 11:11 | W.PN.HOSP.TC ---
Today's Communication/Plan
-
dc back to SNF
Assessment / Plan
Assessment / Plan
# Recurrent esophageal stricture
# History of esophageal stricture status post multiple dilatations in the past
-IV fluids can be stopped
-Protonix 40
-s/p EGD w/o food or pill impaction; did have stricture but could pass scope. Per GI diet can be resumed. Needs outpatient dilatation. Patient was recommended to avoid large pills, meats, breads till dilatation
-Monitor for diet tolerance
GERD/reflux esophagitis/esophageal ulcers/hiatal hernia
Cirrhosis as per prior report
-Patient denies any history
Essential hypertension
cont bumex and bb and losartan
CAD status post stents
-cont bb, plavix and statin
CHF
-comt bumex. Switch KCL to elixir
History of pacemaker
PAD status post femoral bypass
-Chronic bilateral lower extremity swelling/erythema after bypass
Renal artery stenosis
Abdominal aortic aneurysm status post repair
History of thoracic aortic aneurysm status post stent as per patient
History of anemia
-Hold iron supplement, folate
Hyperlipidemia
-cont statin
DNR/DNI
DVT prophylaxis�SCDs
More than 30 minutes spent in discharge including
Final examination of the patient
Summarizing hospital stay
Instructions for continuing care to all relevant caregivers
Preparation of discharge records, prescriptions, and referral forms
Total time spent (in minutes): 45
Anticipated Discharge: Today
Subjective/Interval History
-
Date of Service: August 09, 2024
tolerating diet
Objective Data
-
Labs:
Laboratory Results
08/09/24
06:45
WBC 9.2
Hgb 13.6
Hct 40.8
Plt Count 205
Sodium 138
Potassium 3.7
Chloride 107
Carbon Dioxide 21 L
BUN 15
Creatinine 1.0
Glucose 115 H
Calcium 9.4
Vital Signs:
Vital Signs
Temp Pulse Resp BP Pulse Ox
97.8 F 73 20 169/74 95
08/09/24 07:30 08/09/24 09:03 08/09/24 07:30 08/09/24 09:03 08/09/24 07:30
I&O
08/08/24 08/09/24 08/10/24
06:59 06:59 06:59
Intake Total 0 / 0 240 / 240
Balance 0 / 0 240 / 240
Physical Exam
-
General: Well Developed and No Apparent Distress
HEENT: Normocephalic, Atraumatic and Moist Mucous Membranes
Respiratory: Clear to Auscultation
Cardiac: Regular Rhythm and S1/S2; Negative Murmur, Rub or Gallop
GI: Soft, Nontender, Nondistended and Normal Bowel Sounds; Negative Organomegaly
Rectal: Deferred by Provider
Musculoskeletal: No Clubbing, No Cyanosis and No Edema
Skin: Negative Rash
Neuro: Awake and Nonfocal/Grossly Intact
Psych: Calm
--- NOTE | 2024-08-09 11:12 | W.DCSUMMARY ---
Discharge Summary
Discharge Data
Date of Admission: 08/07/24
Date of Discharge: 08/09/24
-
Pending Results: No
Hospital Course
84-year-old male past medical history of esophageal stricture status post multiple dilatation in the past, GERD, hiatal hernia, cirrhosis, hypertension, CAD status post stents, CHF, history of pacemaker, PAD status post femoral bypass, abdominal
aortic aneurysm status post repair, history of anemia who is presenting complaints of dysphagia. Patient was started on IV fluids. Patient was started on PPI IV. Patient was eval by wire strander. Patient underwent endoscopy. s/p EGD w/o
food or pill impaction; did have stricture but could pass scope. Per GI diet can be resumed. Needs outpatient dilatation. Patient was recommended to avoid large pills, meats, breads till dilatation.. Postprocedure patient was tolerating diet. KCl
tablets was switched to Eliquis on discharge. Patient wants to follow-up with his primary gastroenterology as outpatient. Recommended soft and moist sized diet at senior living.
Discharge Plan
-
Patient Disposition: Prison/SNF
Discharge Diagnosis/Procedures: Dysphagia s/p EGD with esophageal stricture
Condition: Fair
Diet: Other diet
Additional Diets: soft and bite sized
avoid large pills, meats, breads
Activity: As tolerated
Driving Restrictions: As prior to admission
Activity Restrictions/Additional Instructions:
needs outpatient dilation after he is off plavix. pt to avoid large pills, meats, breads until then/
Follow up with your primary wire strander.
Referrals:
Daryl Costello DO [Family Provider] - in less than 1 week
Prescriptions:
New
potassium chloride 20 mEq/15 mL liquid
20 meq PO DAILY 30 Days Qty: 450 0RF
Continued
atorvastatin
20 mg DAILY
bumetanide
2 mg DAILY
clopidogrel
75 mg DAILY
famotidine
40 mg HS
ferrous sulfate 325 mg (65 mg iron) Tablet
325 mg PO DAILY
folic acid
1 mg DAILY
Gemtesa
75 mg DAILY
losartan
50 mg DAILY
metoprolol succinate
50 mg BID AT 0800,1600
Protonix
40 mg BID
Discontinued
potassium
20 meq DAILY
Discharge Orders:
Discharge Patient (As Directed); Ordered 08/09/24
Ordered By: Hernán Scott
Discharge Date and Time
Print Language: ROMANSH
--- NOTE | 2024-08-09 13:17 | CM ---
Addendum entered by Cassandra Sanchez 08/09/24 13:56:
Correct report number: [phone]
Original Note:
Patient is stable for d/c today. Plan is for patient to return to [facility] assisted living.
CM spoke w/ patient bedside, agreeable to d/c today. Patient shared his daughter in law can transport him
IMM reviewed, copy provided, copy placed in chart
Therapy has no skilled needs at this time
[facility]
Report: [phone]- ask for nursing

Plan: Return to [facility] today
[2024-08-09 13:31] VITALS: BP 136/70
== END 2024-08-09 15:13 | DRG 392 ==
LOC: 4 EAST ACU 12:59
PROVIDERS: Physician Assistant; ADMITTING PHYSICIAN Hospitalist; ATTENDING PHYSICIAN Hospitalist; CONSULT PHYSICIAN Internal Medicine; EMERGENCY PHYSICIAN Emergency Medicine; FAMILY PHYSICIAN Family Medicine
PROC: 0DJ08ZZ Inspection of Upper Intestinal Tract, Via Natural or Artificial Opening Endoscopic (ICD-10-PCS; 2024-08-08)
DX: K22.2 Esophageal obstruction (principal); K21.00 Gastro-esophageal reflux disease with esophagitis, without bleeding; K44.9 Diaphragmatic hernia without obstruction or gangrene; K74.60 Unspecified cirrhosis of liver; I25.10 Atherosclerotic heart disease of native coronary artery without angina pectoris; I11.0 Hypertensive heart disease with heart failure; I50.9 Heart failure, unspecified; E78.5 Hyperlipidemia, unspecified; Z66 Do not resuscitate; Z95.0 Presence of cardiac pacemaker; Z95.5 Presence of coronary angioplasty implant and graft
CPT/HCPCS: 80048; 80053; 85025; 97163